=== PATIENT | male | born 1985 | race Caucasian/White ===

== ENCOUNTER 2017-07-25 12:13 | Emergency (ER) | payer OTHER ==
[~2017-07-25] VITALS: Ht 180.3 cm; Wt 65.0 kg
[2017-07-25 13:57] LABS: BASOPHIL (%) 0.5 % (0-1); EOSINOPHIL (%) 3.1 % (0-5); EOSINOPHIL COUNT 0.3 K/uL (0-0.3); HEMATOCRIT 42.3 % (38.0-50.0); HEMOGLOBIN 14.9 G/DL (12.5-16.6); IMMATURE GRANULOCYTE (%) 0.4 % (0.0-0.7); LYMPHOCYTE (%) 27.9 % (15-42); LYMPHOCYTE COUNT 2.3 K/uL (1.0-2.8); MCH 30.8 PG (29.0-34.0); MCHC 35.2 G/DL (30.0-36.0); MCV 87.6 FL (86-99); MONOCYTE (%) 8.3 % (3-12); MONOCYTE COUNT 0.7 K/uL (0-0.8); NEUTROPHIL (%) 59.8 % (45-76); NEUTROPHIL COUNT 4.9 K/uL (1.8-6.4); PLATELET COUNT 286 K/uL (156-360); RBC DIS.WIDTH-CV 11.4 % (11.8-14.6); RBC DIS.WIDTH-SD 36.9 % (39-53); RED BLOOD COUNT 4.83 M/uL (4.00-5.50); WHITE BLOOD COUNT 8.2 K/uL (4.1-10.2)
[2017-07-25 14:00] LABS: ALBUMIN 4.4 g/dL (3.2-4.8)
[2017-07-25 14:01] LABS: CHLORIDE 105 mEq/L (99-109); POTASSIUM 3.9 mEq/L (3.7-5.4); SODIUM 140 mEq/L (136-147)
[2017-07-25 14:03] LABS: GLUCOSE 78 mg/dL (70-99); TOTAL PROTEIN 7.7 g/dL (6.4-8.3)
[2017-07-25 14:05] LABS: TOTAL BILIRUBIN 0.5 mg/dL (0.0-1.0)
[2017-07-25] MEDS ORDERED: ULTRAM50 MG PO (14:05)
[2017-07-25 14:06] LABS: ALKALINE PHOSPHATASE 114 IU/L (3-129)
[2017-07-25 14:07] LABS: CREATININE 0.9 mg/dL (0.6-1.3); GFR ESTIMATE (CALCULATED) > 59 mL/min/ (58.99-99999)
[2017-07-25 14:08] LABS: AST (GOT) 19 IU/L (2-34); UREA NITROGEN (BUN) 16 mg/dL (9-23)
[2017-07-25 14:09] LABS: ALT (GPT) 24 IU/L (3-49)
[2017-07-25 14:10] LABS: LIPASE 25 U/L (1.0-51.0)
[2017-07-25 15:03] LABS: APPEARANCE CLEAR ((CLEAR)); BILIRUBIN NEGATIVE; BLOOD NEGATIVE; COLOR YELLOW ((YELLOW)); GLUCOSE (STRIP) NEGATIVE; KETONES NEGATIVE; LEUKOCYTES NEGATIVE; NITRITE NEGATIVE; PROTEIN (STRIP) 30; UCUL ADDED? NO; UROBILINOGEN 0.2 MG/DL (0.2-1.0)
[2017-07-25] MEDS ORDERED: FLEET ENEMA-AD118 ML PR (15:19)
[2017-07-25] MEDS ORDERED: MILK OF MAGN PO (15:19)
[2017-07-25 15:40] VITALS: BP 122/91
== END 2017-07-25 15:40 | disposition home or self-care (01) ==
LOC: EME 12:13
PROVIDERS: Physician Assistant
DX: K59.00 Constipation, unspecified (principal); R10.32 Left lower quadrant pain; R10.12 Left upper quadrant pain
CPT/HCPCS: 74177; 80053; 81003; 83690; 85025; 85027; 99281; 99284; J7120

== ENCOUNTER 2017-11-03 15:47 | Emergency (ER) | payer OTHER ==
[~2017-11-03] VITALS: Ht 180.3 cm; Wt 65.8 kg
[~2017-11-03 15:47] MED LIST: FLEET ENEMA-AD118 ML PR; MILK OF MAGN PO; ULTRAM50 MG PO
[2017-11-03] MEDS ORDERED: LIBRIUM25 MG PO (16:58)
[2017-11-03 18:35] VITALS: BP 134/85
== END 2017-11-03 18:30 | disposition home or self-care (01) ==
LOC: EME 15:47
DX: F11.23 Opioid dependence with withdrawal (principal); F13.239 Sedative, hypnotic or anxiolytic dependence with withdrawal, unspecified; F42.9 Obsessive-compulsive disorder, unspecified; F43.10 Post-traumatic stress disorder, unspecified; Z87.19 Personal history of other diseases of the digestive system
CPT/HCPCS: 99281; 99284